=== PATIENT | female | born 1955 | race Caucasian/White ===

== ENCOUNTER → 2017-04-10 | Outpatient (CLI) | payer OTHER ==
[~2017-04-10] MED LIST: CITRACAL+D(315M1 TAB PO; DITROPAN XL15 MG PO; FOLIC ACID 40400 MCG PO; LOTENSIN10 MG PO; MULTI VITAMIN1 EACH PO; TYLENOL325 MG PO; VITAMIN B122500 MCG PO
--- NOTE | ~2017-04-10 | ENPV ---
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 Ankle brachial index on the left is 1.09 no significant arterial disease at rest. Procedure Type of Study: Extremities Arteries:Lower Arterial Plethysmography, Ankle/Brachial Indicies. Indications for Study:Ulcer/gangrene. Appropriate Use Criteria:6 Patient Status:Routine. Study Location:Vascular Lab. Technical Quality:Good visualization. Velocities are measured in cm/s ; Diameters are measured in cm Pressures + +----+ +---------+--------+ + + ! ! !Right ! !Left ! ! ! + +----+ +---------+--------+ + + !Location ! !Pressure !Ratio ! !Pressure !Ratio ! + +----+ +---------+--------+ + + !Ankle PT ! !181 !1.14 ! !171 !1.08 ! + +----+ +---------+--------+ + + !DP ! !181 !1.14 ! !173 !1.09 ! + +----+ +---------+--------+ + + - Brachial Pressure:Right: 138.Left:159. - LORETA:Right: 1.14.Left: 1.09. Signature dtt: ITZ ALICIA dtemily: 04/10/17 1256 Physician Self Edit
== END | disposition disaster alternative care site (69) ==
LOC: GBCOE 12:00
DX: Z12.31 Encounter for screening mammogram for malignant neoplasm of breast (principal); T14.8 Other injury of unspecified body region; N63 Unspecified lump in breast; R92.1 Mammographic calcification found on diagnostic imaging of breast; Z91.89 Other specified personal risk factors, not elsewhere classified
CPT/HCPCS: G0202

== ENCOUNTER → 2017-04-12 | Outpatient (CLI) | payer OTHER | END | disposition disaster alternative care site (69) | LOC: GBCOE 14:20 | DX: R92.1 Mammographic calcification found on diagnostic imaging of breast (principal); N63 Unspecified lump in breast | CPT/HCPCS: G0206; G0279 ==

== ENCOUNTER → 2017-05-16 | Outpatient (CLI) | payer OTHER ==
--- NOTE | 2017-05-16 14:08 | NUR ---
Met with patient prior to breast biopsy. Introduced self and role of navigator. Patient has had biopsy before so knows what to expect. Told her I would call tomorrow to see how biopsy site is doing.
== END | disposition disaster alternative care site (69) ==
LOC: GPOC 05-13 09:00 → GBCOE 09:26 → GPOC 10:00
DX: R92.0 Mammographic microcalcification found on diagnostic imaging of breast (principal); N63 Unspecified lump in breast

== ENCOUNTER → 2017-06-17 | Outpatient (CLI) | payer OTHER | END | disposition disaster alternative care site (69) | LOC: GBCOE 06-13 16:00 → GPOC 06-13 16:00 → GBCOE 09:21 | PROC: 0HBU3ZX Excision of Left Breast, Percutaneous Approach, Diagnostic (ICD-10-PCS; principal; 2017-06-17) | DX: R92.0 Mammographic microcalcification found on diagnostic imaging of breast (principal); R59.9 Enlarged lymph nodes, unspecified | CPT/HCPCS: J7050 ==